=== PATIENT | female | born 1970 | race Caucasian/White ===

== ENCOUNTER 2019-11-01 07:04 | Emergency (ER) | payer MEDICARE ==
[~2019-11-01] VITALS: Ht 160 cm; Wt 90.0 kg
[2019-11-01] MEDS ORDERED: LEVETIRACETAM 1000MG/100ML 100 ML IV ONE (08:30)
[2019-11-01 08:46] LABS: HEMATOCRIT. 43.8 % (36.0-48.0); HEMOGLOBIN. 14.4 g/dL (12.0-16.0); MEAN CORPUSCULAR HEMOGLOBIN 28.1 pg (28.0-32.0); MEAN CORPUSCULAR VOLUME 85.2 fL (81.0-99.0); MEAN PLATELET VOLUME 9.9 fl (7.4-10.4); RED BLOOD CELL COUNT 5.14 mill/uL (4.2-5.4); RED CELL DISTRIBUTION WIDTH 15.3 % (11.6-14.6)
[2019-11-01 08:47] LABS: CHLORIDE 111 mEq/L (98-107)
[2019-11-01 09:56] LABS: PLATELET ESTIMATE NORMAL
[2019-11-01 09:58] LABS: PLATELET 197 x1000/uL (130-400)
[2019-11-01 10:20] VITALS: BP 101/68
== END 2019-11-01 10:48 | disposition home or self-care (01) ==
LOC: ER 07:36
DX: R56.9 Unspecified convulsions (principal); Z90.49 Acquired absence of other specified parts of digestive tract
CPT/HCPCS: 36415; 80053; 85025; 96374; 99283; J1953